=== PATIENT | female | born 1950 | race Caucasian/White ===

== ENCOUNTER 2016-09-18 13:02 | Emergency (ER) | payer BC ==
[2016-09-18 15:21] VITALS: BP 116/71
--- NOTE | 2016-09-18 15:49 | UC ---
Throat Pain/Nasal Wilfrido HPI - HPI Summary HPI Summary: has strep throat---she has no sx but is concerned because she is in to visiting grandchildren - History of Current Complaint Chief Complaint: UCRespiratory Stated Complaint: THROAT-WANTS STREP TEST Time Seen by Provider: 09/18/16 15:25 Hx Obtained From: Patient ?: No Severity: Mild Pain Intensity: 0 Pain Scale Used: 0-10 Numeric Cough: None Associated Signs & Symptoms: Positive: Negative - Allergies/Home Medications Allergies/Adverse Reactions: Allergies Allergy/AdvReac Type Severity Reaction Status Date / Time Codeine Allergy Severe GI Upset Verified 09/18/16 15:21 Home Medications: Home Medications Amitriptyline TAB* [Elavil TAB*] 10 mg PO BEDTIME 09/18/16 [History Confirmed ] Aspirin Low Dose CHEW TAB* [Aspirin Low Dose TAB*] 81 mg PO DAILY 09/18/16 [ History Confirmed 09/18/16] Cyclobenzaprine TAB* [Flexeril 10 MG TAB*] 10 mg PO DAILY 09/18/16 [History Confirmed 09/18/16] FLUoxetine CAP* [PROzac CAP*] 40 mg PO DAILY 09/18/16 [History Confirmed ] Lansoprazole SOLUTAB* [Prevacid SOLUTAB*] 30 mg PO DAILY 09/18/16 [History Confirmed 09/18/16] Multiple Vitamins W/ Minerals [Multivitamin Adults] 1 tab PO DAILY 09/18/16 [ History Confirmed 09/18/16] [place] 3 Fatty Acids-[place] 6 FA [[place] 3-6-9 Complex] 1 cap PO DAILY 09/18/16 [ History Confirmed 09/18/16] Polyethylene Glycol 3350* [Miralax*] 17 gm PO DAILY 09/18/16 [History Confirmed 09/18/16] Solifenacin(NF) [Vesicare(NF)] 5 mg PO DAILY 09/18/16 [History Confirmed ] amLODIPine TAB* [Norvasc 5 mg TAB*] 20 mg PO DAILY 09/18/16 [History Confirmed 09/18/16] buPROPion TAB* [Wellbutrin TAB*] 75 mg PO DAILY 09/18/16 [History Confirmed 11/29] PMH/Surg Hx/FS Hx/Imm Hx Previously Healthy: No Cardiovascular History Of: Reports: Hypertension - Surgical History Surgical History: Yes Surgery Procedure, Year, and Place: TONSILLECTOMY, APPENDECTOMY, SEPTOPLASTY, VOCAL CORD SURGERY - Family History Known Family History: Positive: None Family History: no reported cardiovascular issues in family lineage - Social History Occupation: Retired Lives: With Family Alcohol Use: None Substance Use Type: None Smoking Status (MU): Never Smoked Tobacco Review of Systems Constitutional: Negative Skin: Negative Eyes: Negative ENT: Negative Respiratory: Negative Cardiovascular: Negative Gastrointestinal: Negative Genitourinary: Negative Motor: Negative Neurovascular: Negative Musculoskeletal: Negative Neurological: Negative Psychological: Negative All Other Systems Reviewed And Are Negative: Yes Physical Exam Triage Information Reviewed: Yes Appearance: Well-Appearing, No Pain Distress, Well-Nourished Vital Signs: Initial Vital Signs Temp 97.5 F 09/18/16 15:16 Pulse 63 09/18/16 15:16 Resp 16 09/18/16 15:16 BP 116/71 09/18/16 15:16 Pulse Ox 96 09/18/16 15:16 Vital Signs Reviewed: Yes Eye Exam: Normal Eyes: Positive: Conjunctiva Clear ENT Exam: Normal ENT: Positive: Normal ENT inspection, Hearing grossly normal, Pharynx normal, TMs normal. Negative: Nasal congestion, Nasal drainage, Tonsillar swelling, Tonsillar exudate, Trismus, Muffled/hoarse voice Dental Exam: Normal Neck exam: Normal Neck: Positive: Supple, Nontender, No Lymphadenopathy Respiratory Exam: Normal Respiratory: Positive: Chest non-tender, Lungs clear, Normal breath sounds, No respiratory distress, No accessory muscle use Cardiovascular Exam: Normal Cardiovascular: Positive: RRR, No Murmur, Pulses Normal, Brisk Capillary Refill Musculoskeletal Exam: Normal Musculoskeletal: Positive: Strength Intact, ROM Intact, No Edema Neurological Exam: Normal Neurological: Positive: Alert, Muscle Tone Normal Psychological Exam: Normal Skin Exam: Normal Diagnostics - Laboratory Diagnostic Studies Completed/Ordered: RST (-) Throat Pain/Nasal Course/Dx - Course Assessment/Plan: increase fluids, rest follow with any new or different symptoms - Differential Dx/Diagnosis Differential Diagnosis/HQI/PQRI: Otitis Media, Pharyngitis, Sinusitis, URI Provider Diagnoses: Strep pharyngitis exposure Discharge - Discharge Plan Condition: Stable Disposition: HOME Patient Education Materials: Viral Syndrome (ED) Referrals: [facility] [place] [facility] [Outside] - If Needed No Primary Care Phys,NOPCP [Primary Care Provider] -
== END 2016-09-18 15:59 | disposition home or self-care (01) ==
LOC: UCEAST 13:02
DX: Z20.818 Contact with and (suspected) exposure to other bacterial communicable diseases (principal); I10 Essential (primary) hypertension; Z88.0 Allergy status to penicillin; Z79.82 Long term (current) use of aspirin
CPT/HCPCS: 87651; 99202; G0463